=== PATIENT | female | born 1990 | race Caucasian/White ===

== ENCOUNTER 2017-10-20 10:40 | Observation (INO) ==
[2017-10-20] MEDS ORDERED: Ondansetron 4 MG/2 ML VIAL IVP PRN (10:58)
[2017-10-20] MEDS ORDERED: Ringers Solution, Lactated 1,000 ML IVC ONE ×2 (10:58→11:57)
--- NOTE | 2017-10-20 11:14 | OB/GYN Progress Note ---
Date of Encounter: 10/20/17 Time of Encounter: 11:11 - Assessment and Plan (1) Vomiting Current Visit: Yes Status: Acute Pt reports s/o with similar illness one week ago. Will treat symptomatically. Qualifiers: Vomiting type: cyclical vomiting Vomiting Intractability: intractable Nausea presence: with nausea Qualified Code(s): G43.A1 - Cyclical vomiting, intractable (2) 23 weeks gestation of Current Visit: Yes Status: Acute FHT reassuring for GA (3) Dehydration during Current Visit: Yes Status: Acute Plan for IV hydration. Subjective - Subjective Interval history: 27 year-old presenting at 23w2d with c/o vomiting that started at 0200 this am. She reports multiple episodes of emesis since that time. Her was similarly ill 1 week ago. She also reports some lower abdominal cramping that started after the vomiting. No LOF or VB. Good FM. Antepartum ROS: movement normal, contractions, no loss of fluid, no vaginal bleeding Objective - Vital Signs Vital Signs: Intake and Output 10/19/17 10/20/17 10/20/17 23:59 07:59 15:59 Other: Weight 82.6 kg Patient Weight 10/20/17 23:59 Weight 82.6 kg - Exam FHR: auscultation normal FHR comments: 160 BPM Abdomen: Present: soft, gravid Uterus: Present: normal
[2017-10-20 11:19] LABS: Bilirubin,Urine Negative (Negative); Blood,Urine Negative (Negative); Clarity,Urine Cloudy (Clear); Color,Urine Dark Yellow (Yellow); Glucose,Urine (UA) Normal (Normal); Ketones,Urine Trace mg/dL (Negative); Leukocyte Esterase,Urine Moderate (Negative); Nitrite,Urine Negative (Negative); PH,Urine 7.5 pH Units (5.0-8.0); Protein,Urine 30 mg/dL (Neg-Trace); Specific Gravity,Urine 1.026 (1.010-1.025); Urobilinogen,Urine Normal (Normal)
[2017-10-20 11:21] LABS: Basophils % 0.2 %; Eosinophils # 0.1 K/mcL (0.0-0.6); Eosinophils % 0.6 %; Hematocrit 46.9 % (35.3-44.9); Hemoglobin 15.8 g/dL (11.5-15.4); Immature Granulocytes % 1.1 % (0-4); Lymphocytes # 0.7 K/mcL (0.6-4.6); Lymphocytes % 4.7 %; Mean Corpuscular HGB Conc 33.7 g/dL (31.6-35.5); Mean Corpuscular Hemoglobin 29.5 pg (28.0-33.3); Mean Corpuscular Volume 87.5 fL (83.0-100.0); Mean Platelet Volume 9.5 fL (9.4-12.4); Monocytes # 0.4 K/mcL (0.0-1.3); Monocytes % 2.9 %; Neutrophils # 12.9 K/mcL (1.6-8.9); Platelet Count 301 K/mcL (140-400); Red Blood Count 5.36 M/mcL (3.82-4.97); Red Cell Distribution Width 12.9 % (11.5-14.5); Segmented Neutrophils % 90.5 %
[2017-10-20 11:22] LABS: Bacteria,Urine Moderate per hpf (None-Few); Hyaline Casts,Urine Moderate per lpf (None-Few); Squamous Epithelial Cell,Urine Many per lpf (None-Few); WBC,Urine TNTC per hpf (0-3)
[2017-10-20 11:25] LABS: Amphetamine Screen,Urine Negative ng/mL (Cutoff=1000); Barbiturate Screen,Urine Negative ng/mL (Cutoff=200); Benzodiazepines Screen,Urine Negative ng/mL (Cutoff=200); Cannabinoid Screen,Urine Negative ng/mL (Cutoff = 50); Cocaine Screen,Urine Negative ng/mL (Cutoff= 300); Opiate Screen,Urine Negative ng/mL (Cutoff=300); Phencyclidine Screen,Urine Negative ng/mL (Cutoff=25)
[2017-10-20] MEDS ORDERED: *HR* Promethazine 25 MG/ML VIAL IVP ONE (13:17)
[2017-10-20 14:37] LABS: Candida DNA ***DETECTED*** (Not Detect); Gardnerella DNA Not Detected (Not Detect); Trichomonas DNA Not Detected (Not Detect)
[2017-10-20] MEDS ORDERED: Ondansetron 4 MG/2 ML VIAL IVP ONE (14:47)
[2017-10-20] MEDS ORDERED: Metoclopramide 10 MG/2 ML VIAL IVP ONE (14:47)
== END 2017-10-20 16:33 | disposition home or self-care (01) ==
LOC: 1NENULAB
PROVIDERS: ADMIT Registered Nurse; ATTEND Registered Nurse

== ENCOUNTER 2018-02-15 10:00 | Inpatient (IN) ==
--- NOTE | 2018-02-15 22:26 | OB/GYN History & Physical ---
Date of Encounter: 02/15/18 Time of Encounter: 22:23 Assessment and Plan (1) 40 weeks gestation of Current visit: Yes Status: Acute (2) Large for gestational age fetus Current visit: Yes Status: Acute (3) Encounter for induction of labor Current visit: Yes Status: Acute Admit to labor and delivery Saline lock for now Cytotec po Nubain and epidural as desires Anticipate History of Present Illness Chief complaint: Induction of labor HPI: Ms. Glasgow is a 27 year old female 40+1 gestation, presents for induction of labor for post dates and LGA , US on 02/11 showed EFW of 4111g (9lb1oz) 97. care with midwives, uncomplicated course. Labs: O negative, Rubella and Varicella immune, GBS negative, all other serologies negative. Past Med Surg Social Fam HX - Past Medical History Medical history: GERD, other Additional medical history: gallstones Psychiatric history: no psych history - Past Surgical History Surgical History: other (I and D of left breast abscess, 3 months post-) Additional surgical history: abscess drained from left breast - Social History Smoking Status: Never smoker Smokeless Tobacco Status: No Alcohol use: none Drug use: none - Family History Mother Living Status: Still Living Hx Family Cardiac Disorders: Yes (HTN) Hx Family Respiratory Disorders: No Hx Family Cancer: No Hx Family GI Disorders: No Hx Family Endocrine Disorder: No Hx Family Neuromuscular Disorders: No Hx Family Neurologic Disorders: No Hx Family HEENT Disorders: No Hx Family Autoimmune Disorders: No Father Living Status: Still Living Hx Family Cardiac Disorders: No Hx Family Respiratory Disorders: No Obstetrical History - Pregnancies : 2 Para: 1 Term: 1 : 0 Ab's: 0 Livin Medications and Allergies Lansoprazole [Prevacid] 30 mg PO PRN PRN 10/20/17 [History] Metoclopramide [Reglan] 10 mg IM ONCE #1 vial 10/20/17 [Rx] Ondansetron ODT [Zofran ODT] 4 mg SL Q6HR #20 tab.rapdis 10/20/17 [Rx] Ondansetron [Zofran] 4 mg IV ONCE #1 vial 10/20/17 [Rx] Vit/Iron Fumarate/FA [ Tablet] 1 tab PO DAILY 10/20/17 [History ] Terconazole [Terazol 7] 45 gm VG DAILY #7 cream.appl 10/20/17 [Rx] 3 Allergy/AdvReac Type Severity Reaction Status Date / Time Amoxicillin Allergy Rash Verified 04/24/16 19:06 Exam - Constitutional Constitutional: well developed, well nourished, no acute distress, average body habitus - Neck Neck exam: full ROM - Lungs Respiratory exam: CTAB - Cardiovascular Cardiovascular exam: RRR - Abdomen Abdomen: Present: gravid, non tender - Extremities Extremities exam: normal capillary refill, normal inspection - Vulva Vulva: bilateral: normal - Vagina Vagina: Present: normal moisture - Cervix Dilation: 2 Effacement: 80 Station: -2 Results All other labs normal.
[2018-02-15] MEDS ORDERED: EPHEDrine 50 MG/ML VIAL IVP PRN (23:07)
[2018-02-15] MEDS ORDERED: Lidocaine 1% 20 ML MDV INFILT PRN (23:14)
[2018-02-15] MEDS ORDERED: *HR* Nalbuphine 10 MG/ML AMPUL IVP PRN (23:14)
[2018-02-15] MEDS ORDERED: Metoclopramide 10 MG/2 ML VIAL IVP PRN (23:14)
[2018-02-15] MEDS ORDERED: Famotidine 20 MG/2 ML VIAL IVP PRN (23:14)
[2018-02-15] MEDS ORDERED: Ringers Solution, Lactated 1,000 ML IVC SCH (23:15)
[2018-02-15] MEDS ORDERED: Epidural Premix (fent/bupiv) 110 ML EP SCH (23:15)
[2018-02-15] MEDS ORDERED: miSOPROStol 100 MCG TABLET PO ONE (23:19)
--- NOTE | 2018-02-16 | Anesthesia Evaluation PreOp ---
Date of Encounter: 02/15/18 Time of Encounter: 11:58 - Past History Planned Operation: vaginal del, induction term Cardiac History: Denies any Significant Hx Pulmonary History: Denies Any Significant HX MEDICAL INSURANCE CLERK History: Denies Any Significant HX Other Medical History: GERD Anesthesia History: No Prior Anesthetic Complications, Past Anesthesia ( previous epidural.. issues with getting comfortable) Alcohol Use: none Drug use: none Medications and Allergies Lansoprazole [Prevacid] 30 mg PO PRN PRN 10/20/17 [History] Metoclopramide [Reglan] 10 mg IM ONCE #1 vial 10/20/17 [Rx] Ondansetron ODT [Zofran ODT] 4 mg SL Q6HR #20 tab.rapdis 10/20/17 [Rx] Ondansetron [Zofran] 4 mg IV ONCE #1 vial 10/20/17 [Rx] Vit/Iron Fumarate/FA [ Tablet] 1 tab PO DAILY 10/20/17 [History ] Terconazole [Terazol 7] 45 gm VG DAILY #7 cream.appl 10/20/17 [Rx] 3 Allergy/AdvReac Type Severity Reaction Status Date / Time Amoxicillin Allergy Rash Verified 04/24/16 19:06 Anesthesia Exam - HEENT Pupil (Motor): Pupils equal Mallampati: II Teeth: Normal Oral Opening: Greater than 3 - MEDICAL INSURANCE CLERK LOC: Oriented MEDICAL INSURANCE CLERK Motor: Normal RUE, Normal LUE, Normal RLE, Normal LLE, Normal Face MEDICAL INSURANCE CLERK Sensory: Normal: RUE, LUE, RLE, LLE, Face - Cardiac Rhythm: Regular Murmur: None - Pulmonary Breath Sounds: bilateral Clear Respiratory Effort: Symmetrical Anesthesia Assess/Plan ASA Score: 2 Modified Teresita Scale for Level of Consciousness: Cooperative, oriented, and tranquil Anesthetic Plan: General, Regional Monitoring Plan: Standard Monitors Recovery Plan: PACU
[2018-02-16 00:20] LABS: Basophils # 0.1 K/mcL (0.0-0.2); Basophils % 0.7 %; Eosinophils # 0.2 K/mcL (0.0-0.6); Eosinophils % 1.2 %; Hematocrit 41.9 % (35.3-44.9); Immature Granulocytes % 1.5 % (0-4); Lymphocytes # 3.1 K/mcL (0.6-4.6); Lymphocytes % 22.6 %; Mean Corpuscular HGB Conc 33.4 g/dL (31.6-35.5); Mean Corpuscular Hemoglobin 28.7 pg (28.0-33.3); Mean Platelet Volume 10.3 fL (9.4-12.4); Monocytes % 6.9 %; Neutrophils # 9.3 K/mcL (1.6-8.9); Platelet Count 280 K/mcL (140-400); Red Blood Count 4.87 M/mcL (3.82-4.97); Red Cell Distribution Width 13.4 % (11.5-14.5); Segmented Neutrophils % 67.1 %
[2018-02-16 03:29] LABS: Amphetamine Screen,Urine Negative ng/mL (Cutoff=1000); Barbiturate Screen,Urine Negative ng/mL (Cutoff=200); Benzodiazepines Screen,Urine Negative ng/mL (Cutoff=200); Cannabinoid Screen,Urine Negative ng/mL (Cutoff = 50); Cocaine Screen,Urine Negative ng/mL (Cutoff= 300); Opiate Screen,Urine Negative ng/mL (Cutoff=300); Phencyclidine Screen,Urine Negative ng/mL (Cutoff=25)
[2018-02-16] MEDS: Oxytocin 20 units/ LR 1000 mL 20 UNIT/1,000 ML BAG IVC SCH ×2 (04:09→18:16)
--- NOTE | 2018-02-16 05:23 | OB Labor Progress Note ---
Date of Encounter: 02/16/18 Time of Encounter: 05:21 Labor Progress Note - Subjective Subjective: Pt states feeling some occasional contractions - Heart Tones Heart Tones: 125/moderate/+accels/-decels - [place]: 3-5 - Plan Plan: Started pitocin per policy instead on cytotec due to pt contractions Nubain and epidural as desires Anticipate
--- NOTE | 2018-02-16 09:21 | OB Labor Progress Note ---
Date of Encounter: 02/16/18 Time of Encounter: 09:19 Labor Progress Note - Subjective Subjective: Patient resting in bed, denies any questions or concerns - Cervix Cervix: 4/90/-1 - Heart Tones Heart Tones: 125 bpm moderate variability +15x15 accels no decels Cat 1 tracing - [place]: 2-4 min apart - Interventions Interventions: SVE, discussed POC with patient. patient denies any questions or concerns - Plan Plan: Continue labor management Epidural or Nubian for pain management if desires
[2018-02-16] MEDS ORDERED: Lidocaine -MPF 1% 5 ML AMPUL ONE (10:08)
--- NOTE | 2018-02-16 10:43 | Anesthesia Procedures ---
Date of Encounter: 02/16/18 Time of Encounter: 10:41 Procedures: Anesthesia - Epidural/Spinal Patient ID/Chart reviewed: Yes Patient examined: Yes OB Eval: Gestational age: 40 OB Eval: : 2 OB Eval: Hx Para: 1 OB Eval: Dilated at (cm): 4 OB Eval: Contractions: Non-stressed pattern Consent Obtained: Yes Supplemental Oxygen: None/Room Air Site Prep: Aseptic Technique, Sterile prep and drape, Povidone-Iodine 1% Patient position: upright Local Anesthetic: Lidocaine 1% Amount of Local Anesthetic used: 3 Touhy Needle Gauge: 18 Touhy Needle Depth (cm): 9 Catheter Depth at Skin (cm): 20 Test Dose (1.5% Lido + Epi): Volume given (mls): 5 Test Dose Result: Negative Loading Dose: Other: 10mls pharm bag premix solution Loading Dose Administered: Thru Catheter Infusion Med: 0.125% Bupivacaine w/ 2 mcg/ml Fentanyl Infusion Rate (mls/hr): [address]: Tegaderm, Tape Interspace Used: L4-L5 Loss of Resistance (IMELDA): Yes Blood: No CSF: No Paresthesia: Yes (with catheter placement on right side. immediately went away. ) Procedure: pt tolerated procedure well. no complications. vss. fhr stable.
--- NOTE | 2018-02-16 13:53 | OB Labor Progress Note ---
Date of Encounter: 02/16/18 Time of Encounter: 13:50 Labor Progress Note - Subjective Subjective: Patient resting with epidural in place. Patient denies any pain at this time. - Cervix Cervix: 5.5/80/-1 - Heart Tones Heart Tones: 135 bpm moderate variability +15x15 accels no decels noted. Cat. 1 tracing - [place]: 2.5-3 - Interventions Interventions: SVE - Plan Plan: Continue labor management anticipate
[2018-02-16] MEDS ORDERED: Bupivacaine-MPF 0.25% 10 ML VIAL ONE (16:42)
--- NOTE | 2018-02-16 17:59 | OB/GYN Procedure Note ---
Delivery - Delivery Date: 02/16/18 Provider: Ana Maria Abdul (SN [facility]) Intrapartum events: none Delivery induction: AROM, oxytocin Delivery monitor: external FHT, external uterine Anesthesia: epidural Quantitated Blood Loss: 150 - (s) Infant A Infant Delivery Date: 02/16/18 Infant Delivery Time: 17:24 Presentation: vertex Position: LISA Route of delivery: Gender: Male Viability: Viable Pounds: 8 Ounces: 12 Weight Gram: 3955 kg at 1 minute: 9 at 5 mins: 9 Shoulder Dystocia: not encountered Specimens collected: cord blood Placenta: spontaneous, uterine exploration Cord: nuchal cord (X2), 3 umbilical vessels, nuchal reduced - Repair Episiotomy: none Laceration Description: Perineal - 1st Degree (repaired with 3-0 vicryl ) - Complications Delivery complications: none - Disposition Mom disposition: stable in LDR [place] disposition: stable in LDR - Comments Comments: Called to LDR patient complete and +2 station. Patient placed in stirrups and prepped for delivery. Under maternal effort patient spontaneously delivered and viable male over a first degree perineal laceration. Nuchal cord x2 noted and easily reduced. No shoulder dystocia or meconium was encountered. Infant placed on maternal abdomen. A first degree perineal laceration was repaired with 3-0 vicryl. Patient tolerated well. Cord clamped and cut after pulsation ceased. Cord blood collected. Placenta delivered spontaneously and intact. Pericare provided, all counts correct. Both mother and infant stable in LDR for 2 hour recovery.
[2018-02-16] MEDS ORDERED: miSOPROStol 100 MCG TABLET PO STA (18:40)
[2018-02-16] MEDS ORDERED: Lanolin 7 G OINT...G. TP PRN (21:18)
[2018-02-16] MEDS ORDERED: *HR* HYDROcodone/Acet 5/325 mg TABLET PO PRN (21:18)
[2018-02-16] MEDS ORDERED: Benzocaine/Menthol 56 GM AEROSOL SPRAY TP PRN (21:18)
[2018-02-16] MEDS ORDERED: Measles/Mumps/Rubella Vacc 0.5 ML VIAL SQ PRN (21:18)
[2018-02-16] MEDS ORDERED: Oxytocin 20 units/ LR 1000 mL 20 UNIT/1,000 ML BAG IVC SCH (21:18)
[2018-02-16] MEDS ORDERED: Acetaminophen 325 MG TABLET PO PRN (21:18)
[2018-02-16] MEDS ORDERED: Rho Immune Globulin 1,500 UNIT SYRINGE IM PRN (21:18)
[2018-02-16] MEDS: Ibuprofen 600 MG TABLET PO PRN (21:30)
[2018-02-17] MEDS: Ibuprofen 600 MG TABLET PO PRN ×2 (07:55→20:59)
[2018-02-17] MEDS: Prenatal Vit/FA 1 EACH TABLET PO SCH (08:40)
--- NOTE | 2018-02-17 11:11 | Discharge Summary ---
Date of Encounter: 02/17/18 Time of Encounter: 11:08 - Discharge Diagnosis (1) Vaginal delivery Priority: Primary Status: Acute Comments: Pain well controlled with by mouth pain meds Tolerating regular diet Ambulating independently Voiding independently Passing flatus but no BM yet Lochia light Discharge home today - Discharge Medications Prescriptions: Ibuprofen [Motrin] 600 mg PO Q6HR PRN #30 tablet PRN Reason: Cramping Docusate [Colace] 100 mg PO BID #30 capsule Home Medications: Lansoprazole [Prevacid] 30 mg PO PRN PRN 10/20/17 [History] Metoclopramide [Reglan] 10 mg IM ONCE #1 vial 10/20/17 [Rx] Ondansetron ODT [Zofran ODT] 4 mg SL Q6HR #20 tab.rapdis 10/20/17 [Rx] Ondansetron [Zofran] 4 mg IV ONCE #1 vial 10/20/17 [Rx] Vit/Iron Fumarate/FA [ Tablet] 1 tab PO DAILY 10/20/17 [History ] Terconazole [Terazol 7] 45 gm VG DAILY #7 cream.appl 10/20/17 [Rx] Acetaminophen [Tylenol] 650 mg PO Q6HR PRN tablet 02/17/18 [Rx] Benzocaine/Menthol [place] [Dermoplast [place]] 1 appl TP QID PRN aerosol 02/17/18 [Rx] Docusate [Colace] 100 mg PO BID #30 capsule 02/17/18 [Rx] Ibuprofen [Motrin] 600 mg PO Q6HR PRN #30 tablet 02/17/18 [Rx] Lanolin [Lansinoh] 1 appl TP TID PRN oint...g. 02/17/18 [Rx] Allergies/Adverse Reactions: 3 Allergy/AdvReac Type Severity Reaction Status Date / Time Amoxicillin Allergy Rash Verified 04/24/16 19:06 Data Procedures and tests throughout hospitalization: Laboratory Tests 02/15/18 02/15/18 02/16/18 23:40 23:40 02:45 WBC 13.8 H RBC 4.87 Hgb 14.0 Hct 41.9 MCV 86.0 MCH 28.7 MCHC 33.4 RDW 13.4 Plt Count 280 MPV 10.3 Immature Gran % 1.5 Seg Neutrophils % 67.1 Lymphocytes % 22.6 Monocytes % 6.9 Eosinophils % 1.2 Basophils % 0.7 Neutrophils # 9.3 H Lymphocytes # 3.1 Monocytes # 1.0 Eosinophils # 0.2 Basophils # 0.1 Urine Opiates Screen Negative Ur Barbiturates Screen Negative Ur Phencyclidine Scrn Negative Ur Amphetamines Screen Negative U Benzodiazepines Scrn Negative Urine Cocaine Screen Negative U Marijuana (THC) Screen Negative Ur Drug Screen Interp See Below Blood Type O NEGATIVE Antibody Screen POSITIVE Antibody Identification Anti-D Due to Rhogam Date of admission: 02/15/18 22:20 Primary care physician: Mallika Connolly Consults: 02/16/18 21:18 Consult to Typer [CONS] Routine Comment: Vaginal delivery, consult needed Discharging clinician: Isa Tolbert Anticipated date of discharge: 02/17/18 - Patient Status Disposition: Home, Self-Care Condition: Good Functional capacity at discharge: independent ambulation Overall status at discharge: patient is progressing back to baseline - Discharge Instructions Follow Up With: Mallika Connolly MD [Primary Care Provider] - Ana Maria Abdul CNM [Non-Partnered Physician] - - Diet and Activity Activity: increase activity as tolerated Diet: regular diet Hospital Course Reason for admission: IUP at term Delivery: Episiotomy: none Laceration: 1st degree Other procedures: none complications: none Discharge diagnosis: IUP at term delivered [place] baby: male Time Attestation: Total time spent providing and/or coordinating discharge services: Time Spent: Less than 30 minutes Exam - Constitutional Vitals: Temp Pulse Resp BP Pulse Ox 97.8 F 52 16 113/73 99 02/17/18 07:30 02/17/18 07:30 02/17/18 07:30 02/17/18 07:30 02/17/18 04:18 General appearance IM: A&O X 3 - Respiratory Respiratory exam: Present: CTAB - Cardiovascular Cardiovascular exam IM: Present: RRR, +S1, +S2 - GI/Abdominal GI/Abdominal exam IM: normal bowel sounds, no peritoneal signs - Rectal Rectal exam: deferred - Uterine Tone: Firm Uterus Position: At Umbilicus, Midline - Extremities Exam Extremities exam IM: Present: normal capillary refill, radial pulses palpable and symmetrical - Neurological Exam Neurological exam: alert, CN II-XII intact, normal gait, oriented X3, reflexes normal, no focal deficits, strengths equal and symetr throughout - Psychiatric Additional comments: No history of depression. S/sx of PPD depression reviewed and patient verbalizes understanding of when to call. - Other Additional findings: Breasts: Soft, nontender; nipples intact without erythema.
[2018-02-17 16:58] VITALS: BP 110/69
[2018-02-17] MEDS: Famotidine 20 MG TABLET PO SCH (17:14)
[2018-02-17] MEDS ORDERED: GI Cocktail 40 ML EACH PO ONE (18:12)
[2018-02-18] MEDS: Ibuprofen 600 MG TABLET PO PRN (04:39)
[2018-02-18] MEDS: Prenatal Vit/FA 1 EACH TABLET PO SCH (09:45)
[2018-02-18] MEDS: Famotidine 20 MG TABLET PO SCH (09:45)
--- NOTE | 2018-02-18 10:11 | Discharge Summary ---
Date of Encounter: 02/18/18 Time of Encounter: 10:09 - Discharge Diagnosis (1) 40 weeks gestation of Priority: Primary Status: Acute (2) Large for gestational age fetus Priority: Primary Status: Acute (3) Encounter for induction of labor Priority: Primary Status: Acute (4) Vaginal delivery Priority: Primary Status: Acute Comments: Stable, meeting all PP milestones. Pain well managed on po pain medication. bottlefeeding. bleeding minimal, desires discharge - Discharge Medications Prescriptions: Ibuprofen [Motrin] 600 mg PO Q6HR PRN #30 tablet PRN Reason: Cramping Docusate [Colace] 100 mg PO BID #30 capsule Home Medications: Lansoprazole [Prevacid] 30 mg PO PRN PRN 10/20/17 [History] Metoclopramide [Reglan] 10 mg IM ONCE #1 vial 10/20/17 [Rx] Ondansetron ODT [Zofran ODT] 4 mg SL Q6HR #20 tab.rapdis 10/20/17 [Rx] Ondansetron [Zofran] 4 mg IV ONCE #1 vial 10/20/17 [Rx] Vit/Iron Fumarate/FA [ Tablet] 1 tab PO DAILY 10/20/17 [History ] Terconazole [Terazol 7] 45 gm VG DAILY #7 cream.appl 10/20/17 [Rx] Acetaminophen [Tylenol] 650 mg PO Q6HR PRN tablet 02/17/18 [Rx] Benzocaine/Menthol Dequincy [Dermoplast Dequincy] 1 appl TP QID PRN aerosol 02/17/18 [Rx] Docusate [Colace] 100 mg PO BID #30 capsule 02/17/18 [Rx] Ibuprofen [Motrin] 600 mg PO Q6HR PRN #30 tablet 02/17/18 [Rx] Lanolin [Lansinoh] 1 appl TP TID PRN oint...g. 02/17/18 [Rx] Allergies/Adverse Reactions: 3 Allergy/AdvReac Type Severity Reaction Status Date / Time Amoxicillin Allergy Rash Verified 04/24/16 19:06 Data Procedures and tests throughout hospitalization: Laboratory Tests 02/15/18 02/15/18 02/16/18 23:40 23:40 02:45 WBC 13.8 H RBC 4.87 Hgb 14.0 Hct 41.9 MCV 86.0 MCH 28.7 MCHC 33.4 RDW 13.4 Plt Count 280 MPV 10.3 Immature Gran % 1.5 Seg Neutrophils % 67.1 Lymphocytes % 22.6 Monocytes % 6.9 Eosinophils % 1.2 Basophils % 0.7 Neutrophils # 9.3 H Lymphocytes # 3.1 Monocytes # 1.0 Eosinophils # 0.2 Basophils # 0.1 Urine Opiates Screen Negative Ur Barbiturates Screen Negative Ur Phencyclidine Scrn Negative Ur Amphetamines Screen Negative U Benzodiazepines Scrn Negative Urine Cocaine Screen Negative U Marijuana (THC) Screen Negative Ur Drug Screen Interp See Below Blood Type O NEGATIVE Antibody Screen POSITIVE Antibody Identification Anti-D Due to Rhogam Screen Baby's Blood Type Mother's Blood Type Rhogam Indicated Rhogam Req for Mother 02/16/18 17:50 WBC RBC Hgb Hct MCV MCH MCHC RDW Plt Count MPV Immature Gran % Seg Neutrophils % Lymphocytes % Monocytes % Eosinophils % Basophils % Neutrophils # Lymphocytes # Monocytes # Eosinophils # Basophils # Urine Opiates Screen Ur Barbiturates Screen Ur Phencyclidine Scrn Ur Amphetamines Screen U Benzodiazepines Scrn Urine Cocaine Screen U Marijuana (THC) Screen Ur Drug Screen Interp Blood Type Antibody Screen Antibody Identification Screen NEGATIVE Baby's Blood Type B RH POSITIVE Mother's Blood Type O RH NEGATIVE Rhogam Indicated YES Rhogam Req for Mother 1 Labs on day of discharge: Labs from last 24 hours 02/16/18 17:50 Screen NEGATIVE Baby's Blood Type B RH POSITIVE Mother's Blood Type O RH NEGATIVE Rhogam Indicated YES Rhogam Req for Mother 1 Date of admission: 02/15/18 22:20 Primary care physician: Mallika Connolly Consults: 02/16/18 21:18 Consult to Java Software Developer [CONS] Routine Comment: Vaginal delivery, consult needed Discharging clinician: Nathalie Ariza Anticipated date of discharge: 02/18/18 - Patient Status Disposition: Home, Self-Care Condition: Good Functional capacity at discharge: independent ambulation Overall status at discharge: patient is back to baseline - Discharge Instructions Follow Up With: Mallika Connolly MD [Primary Care Provider] - Ana Maria Abdul CNM [Non-Partnered Physician] - - Diet and Activity Activity: resume usual activities as tolerated Diet: regular diet Hospital Course Reason for admission: induction of labor, IUP at term Delivery: Episiotomy: none Laceration: 1st degree Discharge diagnosis: IUP at term delivered [place] baby: male Hospital course: Delivery - Delivery Date: 02/16/18 Provider: Ana Maria Abdul (SN [facility]) Intrapartum events: none Delivery induction: AROM, oxytocin Delivery monitor: external FHT, external uterine Anesthesia: epidural Quantitated Blood Loss: 150 - (s) A Delivery Date: 02/16/18 Infant Delivery Time: 17:24 Presentation: vertex Position: LISA Route of delivery: Gender: Male Viability: Viable Pounds: 8 Ounces: 12 Weight Gram: 3955 kg at 1 minute: 9 at 5 mins: 9 Shoulder Dystocia: not encountered Specimens collected: cord blood Placenta: spontaneous, uterine exploration Cord: nuchal cord (X2), 3 umbilical vessels, nuchal reduced - Repair Episiotomy: none Laceration Description: Perineal - 1st Degree (repaired with 3-0 vicryl ) - Complications Delivery complications: none - Disposition Mom disposition: stable in PP and appropriate for discharge. Time Attestation: Total time spent providing and/or coordinating discharge services: Time Spent: Less than 30 minutes Exam - Constitutional Vitals: Temp Pulse Resp BP Pulse Ox 98.1 F 64 16 110/69 99 02/17/18 16:30 02/17/18 16:30 02/18/18 09:00 02/17/18 16:30 02/17/18 04:18 General appearance IM: A&O X 3 - Respiratory Respiratory exam: Present: CTAB - Cardiovascular Cardiovascular exam IM: Present: RRR - GI/Abdominal GI/Abdominal exam IM: soft - Uterine Tone: Firm Uterus Position: At Umbilicus - Extremities Exam Extremities exam IM: Present: normal capillary refill, normal inspection - Neurological Exam Neurological exam: normal gait, oriented X3 - Psychiatric Additional comments: reports good mood.
== END 2018-02-18 10:50 | disposition home or self-care (01) | DRG 775 ==
LOC: 1NENULAB 22:20 → 1NENUOBS 02-16 20:49
PROVIDERS: ADMIT Advanced Practice Midwife; ATTEND Registered Nurse

== ENCOUNTER 2019-02-19 05:33 | Observation (INO) ==
[2019-02-19 06:16] LABS: Basophils % 0.9 %; Eosinophils # 0.1 K/mcL (0.0-0.6); Eosinophils % 2.1 %; Hematocrit 42.6 % (35.3-44.9); Hemoglobin 13.9 g/dL (11.5-15.4); Immature Granulocytes % 0.2 % (0-4); Lymphocytes # 1.1 K/mcL (0.6-4.6); Lymphocytes % 22.9 %; Mean Corpuscular HGB Conc 32.6 g/dL (31.6-35.5); Mean Corpuscular Hemoglobin 28.3 pg (28.0-33.3); Mean Corpuscular Volume 86.6 fL (83.0-100.0); Mean Platelet Volume 9.4 fL (9.4-12.4); Monocytes # 0.3 K/mcL (0.0-1.3); Monocytes % 7.3 %; Neutrophils # 3.1 K/mcL (1.6-8.9); Platelet Count 326 K/mcL (140-400); Red Blood Count 4.92 M/mcL (3.82-4.97); Red Cell Distribution Width 12.5 % (11.5-14.5); Segmented Neutrophils % 66.6 %
[2019-02-19 06:18] LABS: White Blood Count 4.7 K/mcL (4.3-11.1)
[2019-02-19 06:57] LABS: Alanine Aminotransferase 961 Units/L (7-52); Albumin 4.3 g/dL (3.5-5.7); Albumin/Globulin Ratio 1.5 (1.1-2.2); Alkaline Phosphatase 191 Units/L (34-104); Aspartate Amino Transferase 641 Units/L (13-39); BUN/Creatinine Ratio 12 (6-26); Bilirubin,Direct 1.4 mg/dL (0.0-0.2); Bilirubin,Indirect 0.8 mg/dL (0.0-1.2); Bilirubin,Total 2.2 mg/dL (0.3-1.0); Blood Urea Nitrogen 13 mg/dL (6-20); Calcium 9.5 mg/dL (8.6-10.3); Carbon Dioxide 24 mEq/L (23-29); Chloride 105 mEq/L (98-107); Globulin 2.9 g/dL (2.4-3.5); Glucose 112 mg/dL (70-105); Osmolality,Calculated 295 (280-300); Potassium 3.8 mEq/L (3.5-5.1); Sodium 142 mEq/L (136-145); Total Protein 7.2 g/dL (6.4-8.9); eGFR For African Americans > 60 (> 60); eGFR For Non-African Americans > 60 (> 60)
[2019-02-19] MEDS ORDERED: Ketorolac 15 MG/ML VIAL IVP PRN (10:30)
[2019-02-19] MEDS ORDERED: Naloxone 0.4 MG/ML INJ IVP PRN (10:30)
[2019-02-19] MEDS ORDERED: Ondansetron 4 MG/2 ML VIAL IVP PRN (10:30)
[2019-02-19] MEDS: Ringers Solution, Lactated 1,000 ML IVC SCH ×2 (11:31→21:32)
[2019-02-19] MEDS: MetroNIDAZOLE 500 MG/100 ML 500 MG/100 ML BAG IVPB SCH (17:51)
[2019-02-19] MEDS ORDERED: Indomethacin 50 MG SUPP.RECT RC ONE (18:11)
[2019-02-19] MEDS ORDERED: *HR* Propofol 200 MG/20 ML VIAL IVP ONE (18:55)
[2019-02-19] MEDS ORDERED: *HR* FentaNYL (PF) 100 MCG/2 ML VIAL ONE (18:55)
[2019-02-19] MEDS ORDERED: Lidocaine -MPF 4% 5 ML AMPUL ONE (18:55)
[2019-02-19] MEDS ORDERED: Lidocaine -MPF 2% 2 ML VIAL ONE (18:55)
[2019-02-19] MEDS ORDERED: *HR* Succinylcholine 200 MG/10 ML VIAL IVP ONE (18:55)
[2019-02-19] MEDS ORDERED: Ringers Solution, Lactated 1,000 ML IVC SCH ×2 (19:00→20:15)
[2019-02-19] MEDS ORDERED: Ondansetron 4 MG/2 ML VIAL ONE (19:14)
[2019-02-19] MEDS ORDERED: Dexamethasone 4 MG/ML VIAL ONE (19:14)
[2019-02-20] MEDS: MetroNIDAZOLE 500 MG/100 ML 500 MG/100 ML BAG IVPB SCH ×3 (00:04→23:48)
[2019-02-20 04:12] LABS: Basophils % 0.2 %; Eosinophils % 0.2 %; Hematocrit 40.7 % (35.3-44.9); Hemoglobin 13.1 g/dL (11.5-15.4); Immature Granulocytes % 0.3 % (0-4); Lymphocytes # 0.9 K/mcL (0.6-4.6); Lymphocytes % 14.6 %; Mean Corpuscular HGB Conc 32.2 g/dL (31.6-35.5); Mean Corpuscular Hemoglobin 27.9 pg (28.0-33.3); Mean Corpuscular Volume 86.8 fL (83.0-100.0); Mean Platelet Volume 9.8 fL (9.4-12.4); Monocytes # 0.2 K/mcL (0.0-1.3); Monocytes % 3.1 %; Neutrophils # 5.2 K/mcL (1.6-8.9); Platelet Count 313 K/mcL (140-400); Red Blood Count 4.69 M/mcL (3.82-4.97); Red Cell Distribution Width 12.4 % (11.5-14.5); Segmented Neutrophils % 81.6 %; White Blood Count 6.4 K/mcL (4.3-11.1)
[2019-02-20 04:29] LABS: BUN/Creatinine Ratio 12 (6-26); Blood Urea Nitrogen 11 mg/dL (6-20); Carbon Dioxide 24 mEq/L (23-29); Chloride 102 mEq/L (98-107); Glucose 126 mg/dL (70-105); Osmolality,Calculated 293 (280-300); Sodium 141 mEq/L (136-145); eGFR For African Americans > 60 (> 60); eGFR For Non-African Americans > 60 (> 60)
[2019-02-20 09:41] LABS: Alanine Aminotransferase 705 Units/L (7-52); Albumin 3.8 g/dL (3.5-5.7); Albumin/Globulin Ratio 1.4 (1.1-2.2); Alkaline Phosphatase 182 Units/L (34-104); Aspartate Amino Transferase 180 Units/L (13-39); Bilirubin,Direct 0.3 mg/dL (0.0-0.2); Bilirubin,Indirect 0.6 mg/dL (0.0-1.2); Bilirubin,Total 0.9 mg/dL (0.3-1.0); Globulin 2.7 g/dL (2.4-3.5); Total Protein 6.5 g/dL (6.4-8.9)
[2019-02-20] MEDS ORDERED: Isovue-300 50ML VIAL ONE (11:26)
[2019-02-20] MEDS ORDERED: *HR* FentaNYL (PF) 100 MCG/2 ML VIAL ONE ×2 (11:38→12:53)
[2019-02-20] MEDS ORDERED: *HR* Rocuronium Bromide 50 MG/5 ML VIAL ONE (11:39)
[2019-02-20] MEDS ORDERED: Lidocaine -MPF 4% 5 ML AMPUL ONE (11:39)
[2019-02-20] MEDS ORDERED: *HR* Succinylcholine 200 MG/10 ML VIAL IVP ONE (11:39)
[2019-02-20] MEDS ORDERED: Lidocaine -MPF 2% 2 ML VIAL ONE (11:39)
[2019-02-20] MEDS ORDERED: *HR* Midazolam HCl 2 MG/2 ML VIAL ONE (11:39)
[2019-02-20] MEDS ORDERED: *HR* Propofol 200 MG/20 ML VIAL IVP ONE (11:39)
[2019-02-20] MEDS ORDERED: Dexamethasone 4 MG/ML VIAL ONE (12:54)
[2019-02-20] MEDS ORDERED: Ondansetron 4 MG/2 ML VIAL ONE (12:54)
[2019-02-20] MEDS ORDERED: Neostigmine Methylsulfate 3 MG/3 ML SYRINGE ONE (12:56)
[2019-02-20] MEDS ORDERED: Acetaminophen IV 1,000 MG/100 ML INFUS..BTL ONE (14:42)
[2019-02-20] MEDS: *HR* HYDROmorphone (PF) 1 MG/ML SYRINGE IVP PRN ×2 (15:25→15:31)
[2019-02-20] MEDS: *HR* Promethazine 25 MG/ML VIAL IVP PRN ×2 (15:26→15:41)
[2019-02-20] MEDS ORDERED: Naloxone 0.4 MG/ML INJ IVP PRN (16:18)
[2019-02-20] MEDS ORDERED: Ringers Solution, Lactated 1,000 ML IVC SCH (16:18)
[2019-02-20] MEDS ORDERED: MetroNIDAZOLE 500 MG/100 ML 500 MG/100 ML BAG IVPB SCH (17:00)
[2019-02-20] MEDS: Ondansetron 4 MG/2 ML VIAL IVP PRN (19:19)
[2019-02-21] MEDS: Ketorolac 15 MG/ML VIAL IVP PRN ×3 (02:11→22:23)
[2019-02-21 02:23] LABS: Basophils % 0.2 %; Eosinophils # 0.1 K/mcL (0.0-0.6); Eosinophils % 0.5 %; Hematocrit 39.3 % (35.3-44.9); Hemoglobin 12.7 g/dL (11.5-15.4); Immature Granulocytes % 0.3 % (0-4); Lymphocytes # 1.9 K/mcL (0.6-4.6); Lymphocytes % 16.7 %; Mean Corpuscular HGB Conc 32.3 g/dL (31.6-35.5); Mean Corpuscular Hemoglobin 28.2 pg (28.0-33.3); Mean Corpuscular Volume 87.3 fL (83.0-100.0); Mean Platelet Volume 9.7 fL (9.4-12.4); Monocytes # 0.8 K/mcL (0.0-1.3); Monocytes % 7.3 %; Neutrophils # 8.4 K/mcL (1.6-8.9); Platelet Count 303 K/mcL (140-400); Red Cell Distribution Width 12.5 % (11.5-14.5)
[2019-02-21 02:25] LABS: White Blood Count 11.2 K/mcL (4.3-11.1)
[2019-02-21 02:39] LABS: Alanine Aminotransferase 456 Units/L (7-52); Albumin 3.6 g/dL (3.5-5.7); Albumin/Globulin Ratio 1.7 (1.1-2.2); Alkaline Phosphatase 139 Units/L (34-104); Aspartate Amino Transferase 78 Units/L (13-39); BUN/Creatinine Ratio 13 (6-26); Bilirubin,Total 0.6 mg/dL (0.3-1.0); Blood Urea Nitrogen 11 mg/dL (6-20); Calcium 8.5 mg/dL (8.6-10.3); Carbon Dioxide 23 mEq/L (23-29); Chloride 107 mEq/L (98-107); Globulin 2.1 g/dL (2.4-3.5); Glucose 98 mg/dL (70-105); Osmolality,Calculated 283 (280-300); Sodium 137 mEq/L (136-145); Total Protein 5.7 g/dL (6.4-8.9); eGFR For African Americans > 60 (> 60); eGFR For Non-African Americans > 60 (> 60)
[2019-02-21] MEDS: MetroNIDAZOLE 500 MG/100 ML 500 MG/100 ML BAG IVPB SCH ×2 (09:05→16:32)
[2019-02-21] MEDS: Ondansetron 4 MG/2 ML VIAL IVP PRN (11:27)
[2019-02-22] MEDS: MetroNIDAZOLE 500 MG/100 ML 500 MG/100 ML BAG IVPB SCH ×2 (00:34→07:31)
[2019-02-22] MEDS: Ketorolac 15 MG/ML VIAL IVP PRN (04:55)
[2019-02-22 06:41] LABS: Basophils # 0.1 K/mcL (0.0-0.2); Basophils % 0.7 %; Eosinophils # 0.3 K/mcL (0.0-0.6); Eosinophils % 3.4 %; Hematocrit 39.8 % (35.3-44.9); Hemoglobin 12.6 g/dL (11.5-15.4); Immature Granulocytes % 0.2 % (0-4); Lymphocytes # 2.5 K/mcL (0.6-4.6); Lymphocytes % 28.8 %; Mean Corpuscular HGB Conc 31.7 g/dL (31.6-35.5); Mean Corpuscular Hemoglobin 28.8 pg (28.0-33.3); Mean Corpuscular Volume 91.1 fL (83.0-100.0); Mean Platelet Volume 9.7 fL (9.4-12.4); Monocytes # 0.7 K/mcL (0.0-1.3); Monocytes % 7.7 %; Neutrophils # 5.2 K/mcL (1.6-8.9); Platelet Count 287 K/mcL (140-400); Red Blood Count 4.37 M/mcL (3.82-4.97); Red Cell Distribution Width 12.8 % (11.5-14.5); Segmented Neutrophils % 59.2 %; White Blood Count 8.8 K/mcL (4.3-11.1)
[2019-02-22 07:01] LABS: Alanine Aminotransferase 303 Units/L (7-52); Albumin 3.7 g/dL (3.5-5.7); Albumin/Globulin Ratio 1.8 (1.1-2.2); Alkaline Phosphatase 117 Units/L (34-104); Aspartate Amino Transferase 40 Units/L (13-39); BUN/Creatinine Ratio 11 (6-26); Bilirubin,Total 0.4 mg/dL (0.3-1.0); Blood Urea Nitrogen 9 mg/dL (6-20); Calcium 8.5 mg/dL (8.6-10.3); Carbon Dioxide 25 mEq/L (23-29); Chloride 107 mEq/L (98-107); Globulin 2.1 g/dL (2.4-3.5); Glucose 98 mg/dL (70-105); Osmolality,Calculated 285 (280-300); Potassium 3.4 mEq/L (3.5-5.1); Sodium 138 mEq/L (136-145); Total Protein 5.8 g/dL (6.4-8.9); eGFR For African Americans > 60 (> 60); eGFR For Non-African Americans > 60 (> 60)
[2019-02-22] MEDS: Ondansetron 4 MG/2 ML VIAL IVP PRN (07:21)
[2019-02-22 11:23] VITALS: BP 107/67
== END 2019-02-22 12:31 | disposition home or self-care (01) ==
LOC: CDU 05:33 → EMEROOARM 05:33 → SUATTDRO 10:03 → CDU 10:10 → 3ANU 16:13
PROVIDERS: ADMIT Student in an Organized Health Care Education/Training Program; ATTEND Internal Medicine